=== PATIENT | male | born 1960 | race Asian ===

== ENCOUNTER 2022-06-21 13:45 | Outpatient (REF) | payer MEDICAID, SELFPAY ==
--- NOTE | 2022-06-21 09:00 | EMG_ITS ---
Bilateral median and ulnar motor and sensory studies were performed. Bilateral radial and sensory studies were performed and paraspinal muscles were tested with a needle. IMPRESSION: 1. Mild bilateral ulnar neuropathy across cubital tunnel. 2. Mild right median neuropathy across carpal tunnel. MD TOBIN Harrison/SHERLY / [phone]
== END 2022-06-21 13:46 | disposition home or self-care (01) ==
LOC: HO.NEURO 13:45
PROVIDERS: PCP Family Medicine; Visit Provider Family Medicine
DX: R25.1 Tremor, unspecified (principal)
CPT/HCPCS: 95886; 95911

== ENCOUNTER 2022-09-18 14:46 | Outpatient (REF) | payer MEDICAID, SELFPAY ==
--- NOTE | ~2022-09-18 | XR_ITS ---
EXAMINATION: XR KNEE, RIGHT CLINICAL INFORMATION: Reason for Exam M25.561 CHRONIC RIGHT KNEE PAIN COMPARISON: None TECHNIQUE: 4 views of the knee FINDINGS: No acute fracture or dislocation. Mild degenerative changes of the knee with spurring of the tibial spines, small patellofemoral compartment osteophytes and quadriceps tendon enthesopathy.. No joint effusion. Soft tissues are unremarkable. XR/XR knee RT 4V IMPRESSION: * No acute osseous abnormality. * Mild degenerative changes of the knee.
== END 2022-09-18 14:47 | disposition home or self-care (01) ==
LOC: HO.HMGCX 14:46
PROVIDERS: PCP Family Medicine; Visit Provider Family Medicine
DX: M25.561 Pain in right knee (principal)
CPT/HCPCS: 73564

== ENCOUNTER 2022-12-03 09:56 | Outpatient (REF) | payer MEDICAID, SELFPAY | END 2022-12-03 09:57 | disposition home or self-care (01) | LOC: HO.BBR 09:56 | PROVIDERS: PCP Family Medicine; Visit Provider Hospitalist | DX: E83.110 Hereditary hemochromatosis (principal) | CPT/HCPCS: 85018; 99195 ==

== ENCOUNTER 2023-03-19 09:51 | Outpatient (REF) | payer OTHER, SELFPAY ==
[2023-03-23 11:53] LABS: VITAMIN D (1,25 OH) D3 <8 pg/mL; Vit D (1,25-Dihydroxy) Total 48 pg/mL (18-72); Vitamin D (1,25 OH) D2 48 pg/mL
== END 2023-03-19 09:52 | disposition home or self-care (01) ==
LOC: HO.CHCLDS 09:51
PROVIDERS: Visit Provider Family Medicine
DX: E66.3 Overweight (principal); E55.9 Vitamin D deficiency, unspecified
CPT/HCPCS: 36415; 80053; 80061; 82652; 84443; 85025

== ENCOUNTER 2023-06-07 09:53 | Outpatient (REF) | payer OTHER, SELFPAY | END 2023-06-07 09:54 | disposition home or self-care (01) | LOC: HO.BBR 09:53 | PROVIDERS: PCP Family Medicine; Visit Provider Hospitalist | DX: E83.110 Hereditary hemochromatosis (principal) | CPT/HCPCS: 85014; 85018; 99195 ==

== ENCOUNTER 2024-05-22 09:36 | Outpatient (REF) | payer OTHER, SELFPAY ==
[2024-05-22 14:18] LABS: MANUAL DIFF FLAG NO
[2024-05-22 14:22] LABS: Basophils Absolute Auto 0.1 X10*3/uL (0.0-0.2); Basophils Percent Auto 0.8 % (0-2); Eosinophils Absolute Auto 0.1 X10*3/uL (0.0-0.4); Eosinophils Percent Auto 1.8 % (0-4); Hematocrit 40.7 % (42.0-52.0); Hemoglobin 12.8 g/dl (14.0-18.0); Imm Gran Abs Auto 0.03 X10*3/uL (0.00-0.03); Imm Gran Pct Auto 0.4 % (0.0-0.4); Lymphocytes Absolute Auto 3.3 X10*3/uL (1.2-4.9); Lymphocytes Percent Auto 42.3 % (20-40); Mean Corpuscular HGB Conc 31.4 g/dl (31.0-36.0); Mean Corpuscular Hemoglobin 21.2 pg (27.0-33.0); Mean Corpuscular Volume 67.5 fL (80.0-98.0); Monocytes Absolute Auto 0.4 X10*3/uL (0.1-1.2); Monocytes Percent Auto 5.3 % (2-11); Neutrophils Absolute Auto 3.8 x10*3/uL (2.0-8.3); Neutrophils Percent Auto 49.4 % (45-73); Platelet Count 252 X10*3/uL (160-400); Red Blood Count 6.03 X10*6/uL (4.60-5.80); Red Cell Distribution Width 17.2 % (11.0-16.0); White Blood Count 7.8 X10*3/uL (4.8-10.8)
[2024-05-22 14:42] LABS: Albumin Level 4.7 g/dL (3.5-5.0); Anion Gap 14 (12-20); Aspartate Amino Transferase 37 U/L (5-37); Bilirubin Total 0.3 mg/dL (0.0-1.0); Blood Urea Nitrogen 16 mg/dL (9-16); Calcium 9.9 mg/dL (8.4-10.2); Carbon Dioxide 23 mmol/L (22-29); Chloride 105 mmol/L (96-108); Cholesterol 181 mg/dL (<200); Estimated Glomerular Filt Rate > 60; Glucose Random 105 mg/dL (60-115); HDL Cholesterol 37 mg/dL (>40); Potassium 4.4 mmol/L (3.3-5.1); Sodium 138 mmol/L (135-145); Total Protein 8.9 g/dL (6.5-8.0); Triglycerides 615 mg/dL (<150)
[2024-05-22 15:01] LABS: Alanine Aminotransferase 42 U/L (0-40); Alkaline Phosphatase 89 U/L (39-117)
[2024-05-22 15:05] LABS: TSH reflex Free T4 3.66 uIU/mL (0.32-4.0); Vitamin D 25-OH Total 44.2 ng/mL (>30)
== END 2024-05-22 09:37 | disposition home or self-care (01) ==
LOC: HO.CHCLDS 09:36
PROVIDERS: Visit Provider Family Medicine
DX: E78.5 Hyperlipidemia, unspecified (principal)
CPT/HCPCS: 36415; 80053; 80061; 82306; 84443; 85025

== ENCOUNTER 2024-08-11 08:37 | Outpatient (REF) | payer OTHER, SELFPAY ==
--- OUTSIDE RECORDS SUMMARY | 2024-08-11 09:12 | XMS_ITS | Encounter Summary ---
Author Organization [employer] Address [address] [place] [address] Care Team Providers Care Electric Bath Attendant Name Role Phone Elo Read MD Primary Care Provider [phone] Reason for Visit * Reason Comments Med Refill Encounter Details Date Type Department Care Team ([facility] st Contact Info) Description 08/15/2023 Refill [facility] [address] [place] [address] Patria Martin DDS [address] [place] [address] Social History Tobacco Use Types Packs/Day Years Used Date Smoking Tobacco: Never Passive Smoke Exposure: Never Smokeless Tobacco: Never Alcohol Use Standard Drinks/Week Comments Never 0 (1 standard drink = 0.6 oz pur e alcohol) Depression Answer Date Recorded Patient Health Questionnaire-9 Score 0 07/26/2022 Housing Stability Answer Date Recorded What is your housing situation today? I have alina lerma 04/03/[address] you li ve. Do you have problems with any of the following? None of the above 04/03/2023 Food Insecurity Answer Date Recorded Within the past 12 months, y ou worried that your food would run out before you got money to buy more: Never True 04/03/2023 Within the past 12 months,th e food you bought just didn't last and you didn't have enough money to get more: Never True Transportation Answer Date Recorded In the past 12 months, has l ack of transportation kept you from medical appts, meetings, work or from getting things needed for daily living? No 04/03/2023 Utilities Answer Date Recorded In the past 12 months, has t he electric, gas, oil or water company threatened to shut off services in your home? No 04/03/2023 Depression Answer Date Recorded Patient Health Questionnaire-2 Score 0 07/26/2022 Sex and Gender Information Value Date Recorded Sex Assigned at Male 04/09/2022 10:40 AM EDT Legal Sex Male 10:40 AM EDT Gender Identity Male 04/09/2022 10:40 AM EDT Sexual Orientation Don't know 04/09/2022 10 :40 AM EDT documented as of this encounter Plan of Treatment Upcoming Encounters Date Type Department Care Team (Late st Contact Info) Description 09/18/2024 8:00 AM EDT Office Visit [facility] [address] [place] [address] Rick Hernandez documented as of this encounter Visit Diagnoses Not on filedocumented in this encounter Additional Health Concerns Assessment Noted Time PHQ-9 Depression Total Score: 0 07/26/19 23 1:57 PM EST documented as of this encounter Care Teams Electric Bath Attendant Relationship Specialty Start Date End Date Elo Read MD [address] [place] [phone] PCP - General Family Medicine 03/28/22 documented as of this encounter
--- OUTSIDE RECORDS SUMMARY | 2024-08-11 09:12 | XMS_ITS | Encounter Summary ---
Author Organization [employer] Address [address] [place] [address] Care Team Providers Care Regroover Name Role Phone Elo Read MD Primary Care Provider Reason for Visit * Reason Comments Med Refill Encounter Details Date Type Department Care Team ([facility] Contact Info) Description 07/10/2024 Refill [facility] MED & PEDS [address] [place] [address] Elo Read MD [address] [place] [address] Social History Tobacco Use Types Packs/Day Years [...] Description 09/18/2024 8:00 AM EDT Office Visit [facility] ADULT DENTAL [address] [place] [address] Rick Hernandez documented as of this encounter Visit Diagnoses Not on filedocumented in this encounter Additional Health Concerns Assessment Noted Time PHQ-9 Depression Total Score: 0 07/26/19 23 1:57 PM EST documented as of this encounter Care Teams Regroover Relationship Specialty Start Date End Date Elo Read MD [address] [place] [phone] PCP - General Family Medicine 03/28/22 documented as of this encounter
--- OUTSIDE RECORDS SUMMARY | 2024-08-11 09:12 | XMS_ITS | Encounter Summary ---
Author Organization [employer] Address [address] [facility] 7t [place] [address] Care Team Providers Care Coroner Name Role Phone Elo Read MD Primary Care Provider [phone] Encounter Details Date Type Department Care Team (Late Contact Info) Description 02/06/2023 Abstract [facility] ADULT DENTAL [address] [place] [address] Patria Martin DDS [address] [place], [place] [phone] Social History Tobacco Use Types Packs/Day Years Used Date Smoking Tobacco: Never Passive Smoke Exposure: Never Smokeless Tobacco: Never Alcohol Use Standard Drinks/Week Comments Never 0 (1 standard drink = 0.6 oz pur e alcohol) Depression Answer Date Recorded Patient Health Questionnaire-9 Score 0 07/26/2022 Depression Answer Date Recorded Patient Health Questionnaire-2 Score 0 07/26/2022 Sex and Gender Information Value Date Recorded Sex Assigned at Male 04/09/2022 10:40 AM EDT Legal Sex Male 10:40 AM EDT Gender Identity Male 04/09/2022 10:40 AM EDT Sexual Orientation Don't know 04/09/2022 10 :40 AM EDT documented as of this encounter Plan of Treatment Upcoming Encounters Date Type Department Care Team (Late Contact Info) Description 09/18/2024 8:00 AM EDT Office Visit [facility] ADULT DENTAL [address] [place] [address] Rick Hernandez documented as of this encounter Visit Diagnoses Not on filedocumented in this encounter Additional Health Concerns Assessment Noted Time PHQ-9 Depression Total Score: 0 07/26/19 23 1:57 PM EST documented as of this encounter Care Teams Coroner Relationship Specialty Start Date End Date Elo Read MD [address] [place] [address] PCP - General Family Medicine 03/28/22 documented as of this encounter
--- OUTSIDE RECORDS SUMMARY | 2024-08-11 09:13 | XMS_ITS | Clinical Summary ---
Author Organization [employer] Address [address] [facility] 7t [place] [address] Care Team Providers Care Exercise Instruct Name Role Phone Elo Read MD Primary Care Provider [phone] Allergies Active Allergy Reactions Criticality Noted Date Comments Pollen Extract 01/25/2023 Medications ergocalciferol (Vitamin D2) 1.25 MG (27333 UT) capsule TAKE ONE CAPSULE EVERY WEEK 12 capsule 3 01/29/2024 Active rosuvastatin (Crestor) 40 MG tabletIndicatio ns:Hypertriglyc eridemia Take 1 tablet (40 mg) by mouth Once per day. 90 tablet 1 05/29/2024 Active fenofibrate micronized (Antara) 130 MG capsuleIndicati ons:Hypertrigly ceridemia Take 1 capsule (130 mg) by mouth with breakfast. 30 capsule 11 05/29/2024 5 Active Active Problems Problem Noted Date Diagnosed Date Beta thalassemia trait 07/05/2023 4 Overweight 03/20/2023 Vitamin D deficiency 03/20/2023 Assessment & Plan (03/20/2023 8:38 AM EDT): Will check vit D levels and f/up with results Hyperlipidemia 03/20/2023 Assessment & Plan (05/22/2024 9:18 AM EST): HLD controlled, continue on current medications and follow up in one year. Ordering lab work for further evaluation. Assessment & Plan (07/05/2023 9:40 AM EST): Patient states feeling well with no concerns at this time. Will keep monitoring cholesterol levels. Assessment & Plan (03/20/2023 8:37 AM EDT): On statin. Monitoring q12 mo. Lab Results Component Value Date CHOL 138 03/19/2023 Lab Results Component Value Date HDL 42 03/19/2023 No results found for: LDLCALC Lab Results Component Value Date TRIG 118 03/19/2023 No results found for: CHOLHDL Immunization due 03/20/2023 Assessment & Plan (03/20/2023 8:40 AM EDT): Patient denies a hx of egg allergy or to components of the vaccine. Yearly vaccine administered Chronic pain of right knee 09/18/2022 Assessment & Plan (09/18/2022 2:44 PM EDT): Ddx arthritis. Patient with crepitus, patellar tracking, and tenderness at medial joint line upon examination. Ddx OAA. Will send for X-ray. Will substitute meloxicam for diclofenac. Elevated blood pressure reading 08/14/2022 Assessment & Plan (08/14/2022 3:17 PM EST): Control. Continue monitoring. Iron overload 07/26/2022 Assessment & Plan (08/14/2022 3:17 PM EST): Reports he followed up in [place] from hematology but that he will like to be seen by a local press leader given it is far for him to followup, hematology referral placed Tremor of both hands 07/26/2022 Assessment & Plan (08/14/2022 3:16 PM EST): Reviewed EMG findings with patient. Declined referral to hand surgeon, reports symptoms have improved since he retired, it could be related to overuse. Hold off referrals at this time. Encounters Date Type Department Care Team Description 07/10/2024 Refill [facility] MED & PEDS [address] [place] [address] Elo Read MD 05/29/2024 Telephone [facility] [address] [place] [address] Elo Read MD 05/22/2024 8:30 AM EST Office Visit [facility] [address] [place] [address] Elo Read MD Hyperlipidemia, unspecified hyperlipidemia type (Primary Dx); Encounter for immunization 05/22/2024 Travel 05/20/2024 Telephone [facility] [address] [place] [address] Elo Read MD CHART PREP 05/18/2024 9:00 AM EST Office Visit [facility] ADULT DENTAL [address] [place] [address] Rick Hernandez Dental calculus (Primary Dx) from Last 3 Months Immunizations Name Administration Dates Next Due Influenza Injectable Quadriv alant Preservative Free IIV4 MDCK 08/23/2023 Influenza injectable quadriv alent preservative free 03/08/2023,03/29/2022,03/24/2021,2019 Influenza, seasonal, injecta ble, preservative free 05/22/2024 Pfizer Covid-19 Vaccine 12+ 09/06/2023,1 07/13/2020,10/08/2020,2020 RSV Bivalent 08/23/2023,07/05/2023 Tdap 01/05/2020,10/24/2009 Zoster, Recombinant 06/01/2022,03/30/2022 Family History Medical History Relation Name Comments Aneurysm Brother Thyroid disease Brother Stroke Father Hypertension Mother Relation Name Status Comments Brother Father Mother Social History Tobacco Use Types Packs/Day Years Used Date Smoking Tobacco: Never Passive Smoke Exposure: Never Smokeless Tobacco: Never Tobacco Cessation:Counseling Given: Not Answered Alcohol Use Standard Drinks/Week Comments Never 0 [...] the past 12 months, has t he [employer], gas, oil or water company threatened to shut off services in your home? No 04/03/2023 Depression Answer Date Recorded Patient Health Questionnaire-2 Score 0 07/26/2022 Sex and Gender Information Value Date Recorded Sex Assigned at Male 04/09/2022 10:40 AM EDT Legal Sex Male 10:40 AM EDT Gender Identity Male 04/09/2022 10:40 AM EDT Sexual Orientation Don't know 04/09/2022 10 :40 AM EDT Last Filed Vital Signs Vital Sign Reading Time Taken Comments Blood Pressure 134/81 05/22/2024 8:46 AM EST Pulse 76 05/22/2024 8:46 AM EST Temperature 36.1 ??C (97 ??F) 05/22/2024 8:46 AM EST Respiratory Rate 18 07/05/2023 8:52 AM EST Oxygen Saturation 98% 07/05/2023 8:52 AM EST Inhaled Oxygen Concentration - - Weight 67 kg (147 lb 12.8 oz) 07/05/2023 8:52 AM EST Height 158 cm (5' 2.21 ) 07/05/2023 8:52 AM EST Body Mass Index 26.86 07/05/2023 8:52 AM EST Plan of Treatment Upcoming Encounters Date Type Department Care Team (Late st Contact Info) Description 09/18/2024 8:00 AM EDT Office Visit [facility] ADULT DENTAL [address] [place], [place] [id number] Rick Hernandez Health Maintenance Due Date Last Done Comments CT Colonography 1959 FIT DNA/Cologuard 1959 FIT 1959 FOBT 1959 HIV Screening 1959 Sigmoidoscopy 1959 Alcohol/Substance Use Screening 1971 Hepatitis C Screening 12/30/1977 Pneumococcal Vaccine: 50+ Years (1 of 1 - PCV) 12/30/2009 Depression Screening 07/26/2023 07/26/2022, 07/26/19 23 SDOH Screening 07/26/2023 07/26/2022 COVID-19 Vaccine (2023- season) 2024 09/06/2023, 05/05/2022, 05/12/2021, Additional history exists Dental Oral Exam 09/12/2024 03/13/2024, 01/30/2023 Dental Prophylaxis 09/12/2024 03/13/2024, 0 09/06/2023, 01/25/2023 Dental X-Ray: Bitewings 03/14/2025 03/13/2024, 01/25 Tobacco Screening 05/18/2025 05/18/2024 Dental X-Ray: Full Mouth 01/26/2026 01/25/2023 Lipid Panel 05/22/2029 05/22/2024, 03/10, 03/30/2022 DTaP/Tdap/Td Vaccines (3 - Td or Tdap) 01/04/2030 01/05/2020, 10/24/2009 Colonoscopy 10/09/2032 10/09/2022 Colorectal Cancer Screening 10/09/2032 Zoster Vaccines Completed 06/01/2022, 03/30/2022 RSV Patients and Patients Aged 60 years or older Completed 08/23/2023, 07/05/2023 Influenza Vaccine Completed 05/22/2024, , 03/08/2023, Additional history exists HIB Vaccines Aged Out No longer eligi ble based on patient's age to complete this topic HPV Vaccines Aged Out No longer eligi ble based on patient's age to complete this topic Hepatitis A Vaccines Aged Out No long er eligible based on patient's age to complete this topic Hepatitis B Vaccines Aged Out No long er eligible based on patient's age to complete this topic IPV Vaccines Aged Out No longer eligi ble based on patient's age to complete this topic Meningococcal Vaccine Aged Out No bert cameron eligible based on patient's age to complete this topic RSV under 20 months Aged Out No longe r eligible based on patient's age to complete this topic Rotavirus Vaccines Aged Out No longer eligible based on patient's age to complete this topic Procedures Procedure Name Priority Date/Time Associated Diagnosis Comments VITAMIN D,25-OH,TOTAL,IA Routine 05/22/2024 9:37 AM EST Hyperlipidemia, unspecified hyperlipidemia type TSH W/REFLEX TO FT4 Routine 05/22/2024 9 :37 AM EST Hyperlipidemia, unspecified hyperlipidemia type LIPID PANEL, STANDARD Routine 05/22/2024 9:37 AM EST Hyperlipidemia, unspecified hyperlipidemia type COMPREHENSIVE METABOLIC PANEL Routine 05/22/2024 9:37 AM EST Hyperlipidemia, unspecified hyperlipidemia type CBC WITH AUTO DIFFERENTIAL Routine 05/22/2024 9:37 AM EST Hyperlipidemia, unspecified hyperlipidemia type CASE PRESENTATION, DETAILED AND EXTENSIVE TREATMENT PLANNING Routine 05/18/2024 9:00 AM EST LR PERIODONTAL SCALING AND ROOT PLANING - 4 OR MORE TEETH PER QUADRANT Routine 05/18/2024 9:00 AM EST LL PERIODONTAL SCALING AND ROOT PLANING - 4 OR MORE TEETH PER QUADRANT Routine 05/18/2024 9:00 AM EST Full PROPHYLAXIS - ADULT Routine 03/13/2024 9:00 AM EDT BITEWINGS - 4 RADIOGRAPHIC IMAGES Routine 03/13/2024 9:00 AM EDT PERIODIC ORAL EVALUATION - ESTABLISHED PATIENT Routine 03/13/2024 9:00 AM EDT INTRAORAL - COMPLETE SERIES OF RADIOGRAPHIC IMAGES Routine 01/25/2023 9:00 AM EDT HM COLONOSCOPY Routine 10/09/2022 4:54 PM EDT from Last 3 Months or Most Recently Relevant to Health Maintenance Results * Vitamin D, 25-Hydroxy, Total, Immunoassay (05/22/2024 9:37 AM EST) Vitamin D 25-OH Total 44.2 >30 ng/mL [facility] Comment:Health Based Referen ce Values*< 20 ng/mL Yddxbmkns33-16 ng/mL Insufficient> 30 ng/mL Sufficient*Aleta CHANDRA. N Engl J Med. 2007;357:266-280Care must be taken in interpreting Vitamin D results fromdifferent laboratories and methodologies. Published datademonstrated that results from patients undergoinghemodialysis may show a negative bias when tested withvarious automated 25-OH vitamin D assays when compared toLC-MS/MS.When testing samples from patients whose predominant form ofVitamin D is Vitamin D2, such as patients receiving VitaminD2 supplementation, results that are subtherapeutic shouldbe confirmed with another method such as LC-MS/MS. Blood Venous blood specimen / Unknown 05/22/2024 9:37 AM EST 05/22/2024 2:18 PM EST Elo Read MD LAB BLOOD ORDERABLES Final Re sult Performing Organization Address [facility]/ZIP Co de Phone Number [facility] [address] [place] [phone] * TSH W/Reflex to FT4 (05/22/2024 9:37 AM EST) TSH reflex Free T4 3.66 0.32 - 4.0 uIU/mL [facility] Blood Venous blood specimen / Unknown 05/22/2024 9:37 AM EST 05/22/2024 2:18 PM EST us Elo Read MD LAB BLOOD ORDERABLES Final Re sult Performing Organization Address City/[facility] Co de Phone Number [facility] [address] [place] [phone] * (ABNORMAL) CBC auto differential (05/22/2024 9:37 AM EST) White Blood Count 7.8 4.8 - 10.8 X10*3/uL [facility] Red Blood Count 6.03(H) 4.60 - 5.80 X10*6/uL [facility] Hemoglobin 12.8(L) 14.0 - 18.0 g/dl [facility] Hematocrit 40.7(L) 42.0 - 52.0 % [facility] Mean Corpuscular Volume 67.5(L) 80.0 - 98.0 fL [facility] Mean Corpuscular Hemoglobin 21.2(L) 27.0 - 33.0 pg [facility] Mean Corpuscular HGB Conc 31.4 31.0 - 36.0 g/dl [facility] Red Cell Distribution Width 17.2(H) 11.0 - 16.0 % [facility] Platelet Count 252 160 - 400 X10*3/uL [facility] Mean Platelet Volume 11.0 9.4 - 12.4 fL [facility] Neutrophils Percent Auto 49.4 45 - 73 % [facility] Imm Gran Pct Auto 0.4 0.0 - 0.4 % [facility] Lymphocytes Percent Auto 42.3(H) 20 - 40 % [facility] Monocytes Percent Auto 5.3 2 - 11 % [facility] Eosinophils Percent Auto 1.8 0 - 4 % [facility] Basophils Percent Auto 0.8 0 - 2 % [facility] NRBC Pct Auto 0.0 0.0 - 0.2 /100WBC [facility] Neutrophils Absolute Auto 3.8 2.0 - 8.3 x10*3/uL [facility] Imm Gran Abs Auto 0.03 0.00 - 0.03 X10*3/uL [facility] Lymphocytes Absolute Auto 3.3 1.2 - 4.9 X10*3/uL [facility] Monocytes Absolute Auto 0.4 0.1 - 1.2 X10*3/uL [facility] Eosinophils Absolute Auto 0.1 0.0 - 0.4 X10*3/uL [facility] Basophils Absolute Auto 0.1 0.0 - 0.2 X10*3/uL [facility] NRBC Abs Auto 0.000 0.0 - 0.012 X10*3/uL [facility] Blood Venous blood specimen / Unknown 05/22/2024 9:37 AM EST 05/22/2024 2:14 PM EST us Elo Read MD LAB BLOOD ORDERABLES Final Re sult Performing Organization Address City/[facility]/ZIP Co de Phone Number [facility] [address] [place] [phone] * (ABNORMAL) Lipid Panel, Standard (05/22/2024 9:37 AM EST) Triglycerides 615(H) <150 mg/dL [facility] Comment:Mild Lipemia.Desirab le Triglyceride: less than 150 mg/dLBorderline High Triglyceride 150-199 mg/dLHigh Triglyceride: 200-499 mg/dLVery High Triglyceride: greater than or equal to 5OO mg/dL Cholesterol 181 <200 mg/dL [facility] Comment:Desirable Cholestero l: less than 200 mg/dLBorderline High Cholesterol: 200-239 mg/dLHigh Cholesterol: greater than 239 mg/dL LDL Cholesterol Calculated TNP <100 mg/dL [facility] Comment:Unable to calculate the LDL. The formula of Friedwald,Boo, and Ailyn is only valid if the triglycerides areless than 400 mg/dl. HDL Cholesterol 37(L) >40 mg/dL [facility] Comment:Desirable HDL: great er than 40 mg/dL Note: This HDL assay may give artificially low results in patients with liver disease. Blood Venous blood specimen / Unknown 05/22/2024 9:37 AM EST 05/22/2024 2:18 PM EST us Elo Read MD LAB BLOOD ORDERABLES Final Re sult Performing Organization Address City/[facility]/ZIP Co de Phone Number [facility] [address] [place] [phone] * (ABNORMAL) Comprehensive Metabolic Panel (05/22/2024 9:37 AM EST) Sodium 138 135 - 145 mmol/L [facility] Potassium 4.4 3.3 - 5.1 mmol/L [facility] Chloride 105 96 - 108 mmol/L [facility] Carbon Dioxide 23 22 - 29 mmol/L [facility] Anion Gap 14 12 - 20 [facility] Urea Nitrogen (BUN) 16 9 - 16 mg/dL [facility] Creatinine, Serum 0.97 0.5 - 1.4 mg/dL [facility] Estimated Glomerular Filt Rate >60 [facility] Comment:Chronic Kidney Disea se: Estimated GFR < 60 mL/min/1.18j4Mjisem Kidney Disease: Estimated GFR < 15 mL/min/1.73m2 Glucose 105 60 - 115 mg/dL [facility] Calcium 9.9 8.4 - 10.2 mg/dL [facility] Bilirubin, Total 0.3 0.0 - 1.0 mg/dL [facility] Aspartate Amino Transferase 37 5 - 37 U/L [facility] Alanine Aminotransferase 42(H) 0 - 40 U/L [facility] Total Protein 8.9(H) 6.5 - 8.0 g/dL [facility] Albumin Level 4.7 3.5 - 5.0 g/dL [facility] Alkaline Phosphatase 89 39 - 117 U/L [facility] Blood Venous blood specimen / Unknown 05/22/2024 9:37 AM EST 05/22/2024 2:18 PM EST Elo Read MD LAB BLOOD ORDERABLES Final Re sult [facility] [address] [place] [phone] * Hm Colonoscopy (10/09/2022 4:54 PM EDT) Colonoscopy Normal Normal Narrative Elo Read MD - 10/09/2022 4:54 PM EDT Done in [facility] 1 polyp, normal pathology, repeat in 10 yrs See report from [facility] 10/09/22 Historical Provider HEALTH MAINTENANCE Final Result from Last 3 Months or Most Recently Relevant to Health Maintenance Insurance [place] [facility] [place], [place] DENTAL - HSN PARTIAL (MEDICAID) Care Teams Exercise Instruct Relationship Specialty Start Date End Date Elo Read MD [address] [place] [address] [phone] PCP - General Family Medicine 03/28/22
[2024-08-11 14:37] LABS: Cholesterol 143 mg/dL (<200); HDL Cholesterol 45 mg/dL (>40); LDL Cholesterol Calculated 74 mg/dL (<100); Triglycerides 124 mg/dL (<150)
== END 2024-08-11 08:38 | disposition home or self-care (01) ==
LOC: HO.CHCLDS 08:37
PROVIDERS: Visit Provider Family Medicine
DX: E78.1 Pure hyperglyceridemia (principal)
CPT/HCPCS: 36415; 80061

== ENCOUNTER 2024-12-15 08:20 | Outpatient (AMB) | payer OTHER, MEDICARE, SELFPAY ==
--- OUTSIDE RECORDS SUMMARY | 2024-12-15 08:22 | XMS_ITS | Encounter Summary ---
Author Organization [employer] Address [address] [place] [address] Care Team Providers Care Residential Subcontractor Name Role Phone Elo Read MD Primary Care Provider [phone] Encounter Details Date Type Department Care Team (Late Contact Info) Description 02/06/2023 Abstract [facility] AD[facility] [address] [place] [address] Patria Martin DDS [address] [place], [place] [phone] Social History Tobacco Use Types Packs/Day Years [...] Department Care Team (Late Contact Info) Description 12/25/2024 8:45 AM EDT Office Visit [facility] MED [facility] PED[facility] [address] [place] [address] Elo Read MD [address] [place], [place] [phone] 02/19/2025 2:00 PM EDT Office Visit [facility] [address] [place] [address] Nelly Alford, OD [address] [place] [address] 04/23/2025 8:00 AM EST Office Visit [facility] [address] [place] [address] iRck Hernandez documented as of this encounter Visit Diagnoses Not on filedocumented in this encounter Additional Health Concerns Assessment Noted Time PHQ-9 Depression Total Score: 0 07/26/19 23 1:57 PM EST documented as of this encounter Care Teams Residential Subcontractor Relationship Specialty Start Date End Date Elo Read MD [address] [place] [address] PCP - General Family Medicine 03/28/22 documented as of this encounter
--- NOTE | 2024-12-15 08:34 | A.OFFVIS_ITS ---
Vital Signs 12/15/24 08:34 Height 5 ft 2 in Intake Visit Reasons: 1 yr fu Allergies No Known Allergies Allergy (Verified 12/15/24 08:37) Medication List - Last Reconciled 12/15/24 by Helen Dyer CNP ergocalciferol (vitamin D2) 1,250 mcg PO QWEEK fenofibrate micronized 130 mg PO QAM loratadine 10 mg PO DAILY rosuvastatin 40 mg PO DAILY HPI Comments Details: 63-year-old RH man with history of intermittent fine tremor of the hands left worse than right that started in . 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 He felt tremor was better overall since he retired. He noticed he was having more tremor in right when trying to drink from a cup and could not hold cup steady over the last few months. He did not have any trouble eating or using utensils with right hand. He did not have any trouble holding cup steady in left hand. No difficulty swallowing. No falls. No family history of tremor. [facility] Medical History (Updated 12/15/24 @ 08:47 by Helen Dyer CNP) Osteoarthritis HLD (hyperlipidemia) Benign essential tremor Social History (Updated 12/15/24 @ 08:46 by Helen Dyer CNP) Alcohol intake: current Comment: 4 beers/day Patient Tobacco Use Status: Never used Tobacco Review of Systems Const Denies chills, Denies daytime sleepiness, Denies difficulty sleeping, Denies fatigue, Denies fever(s), Denies frequent falls, Denies headache(s), Denies increased appetite, Denies poor appetite, Denies snoring, Denies weakness, Denies weight gain and Denies weight loss Eyes Denies loss of vision ENT Denies vertigo, Denies dizziness, Denies headache(s) and Denies neck pain Card Denies chest pain at rest, Denies chest pain with activity, Denies syncope, Denies leg edema, Denies palpitations, Denies dyspnea and Denies dyspnea on exertion Resp Denies cough, Denies dyspnea, Denies dyspnea on exertion and Denies snoring GI Denies abdominal pain, Denies constipation, Denies heartburn, Denies diarrhea and Denies nausea Denies urinary frequency, Denies urinary incontinence and Denies urinary urgency Musc Denies abnormal gait, Denies back pain, Denies myalgias, Denies arthralgias, Denies neck pain, Denies numbness, Denies stiffness and Denies tingling Neuro Denies abnormal gait, Denies vertigo, Denies dizziness, Denies syncope, Denies frequent falls, Denies headache(s), Denies lack of coordination, Denies loss of vision, Denies memory loss, Denies numbness, Denies Other visual disturbances, Denies restless legs, Denies seizure-like activity, Denies tingling, Denies pa resthesias, Reports tremor(s) and Denies weakness Psych Denies anxiety, Denies depression, Denies memory loss, Denies visual hallucinations and Denies hallucinations Endo Denies fatigue and Denies palpitations Physical Exam Const Other: General Appearance:? normal, in no acute distress. Heart:? S1, S2 normal, no murmurs. Lungs:? clear anteriorly and posteriorly. Musculoskeletal:? normal. Extremities:? no edema. Psych:? alert, oriented, cognitive function intact, cooperative with exam. Neuro Other: Abnormal Neurological Findings:?Minimal left hand tremor in outstretched position intermittently Mental Status: alert and oriented X 3. Normal attention, orientation, memory, and affect. Cranial Nerves: Pupils are equal, round, and reactive to light. External ocular muscles are intact. Visual espinoza are full, no ptosis. Face is symmetrical, no facial weakness or droop. Facial sensations are normal. Tongue protrudes in midline. Palate elevates symmetrically. Shoulder shrugging is normal Motor Examination: Normal muscle tone, bulk and strength. No atrophy or fasciculations. No drift of the extended upper extremities. DTR 2+. Plantars are flexor. Straight Leg Raisin degrees. Sensory Exam: Normal light touch, temperature, pinprick, vibration, and joint- position sensations. Rhomberg sign is absent. Coordination: No ataxia. No titubation. Ayujxi-us-ibib, pfdd-jubq-ioqs test, and rapid alternating movements were normal. Gait Exam: Within normal limits. Cerebellar Signs: Ysczhy-sw-edur and scxr-vf-phys is normal. No dysdiadochokinesia. Extrapyramidal System: Tremor as above. No rigidity with normal facial expressions. No bradykinesia. No bradyphrenia. Normal arm swing and posture. No propulsion or retropulsion. Speech: Normal. No dysphasia or dysarthria. Assessment & Plan Assessment & Plan (1) Benign essential tremor: Code(s): G25.0 - Essential tremor Category: Medical Plan: Tremor was minimal on exam. Treatment options reviewed. Tremor was not significantly bothersome at this time and he was not interested in starting medication at this time. Plan . Coding Level of Care Code Est Pt Level 3 (16543) Diagnoses Benign essential tremor G25.0
== END 2024-12-15 08:50 | disposition home or self-care (01) ==
PROVIDERS: PCP Family Medicine; Referring Provider Family Medicine; Visit Provider Registered Nurse
DX: G25.0 Essential tremor (principal)
CPT/HCPCS: 99213

== ENCOUNTER → 2024-12-15 08:20 | Outpatient (BNVA) | payer OTHER, MEDICARE, SELFPAY | PROVIDERS: PCP Family Medicine; Referring Provider Family Medicine; Visit Provider Registered Nurse | DX: G25.0 Essential tremor (principal) | CPT/HCPCS: 99212 ==